=== PATIENT | male | born 1950 | race Two or more races ===

== ENCOUNTER 2017-12-12 09:09 | Day surgery (SDC) | payer MEDICARE, MEDICAID ==
[2017-12-12] MEDS ORDERED: CEFAZOLIN 1 G VIAL MC ONE (09:10)
[2017-12-12] MEDS ORDERED: LIDOCAINE-MPF 2% 5 ML VIAL MC ONE (09:10)
[2017-12-12] MEDS ORDERED: ONDANSETRON 4 MG/2 ML VIAL IV ONE (09:10)
[2017-12-12] MEDS ORDERED: PHENYLEPHRINE 10 MG/1 ML VIAL MC ONE (09:10)
[2017-12-12] MEDS ORDERED: DEXAMETHASONE SOD PHOSPHATE 4 MG INJ IV ONE (09:10)
[2017-12-12] MEDS ORDERED: PROPOFOL 200 MG/20 ML BOTTLE IV ONE (09:10)
[2017-12-12] MEDS ORDERED: SEVOFLURANE 250 ML BOTTLE IH ONE (09:10)
[2017-12-12] MEDS ORDERED: CEFAZOLIN 50 ML IV ONE (09:55)
[2017-12-12] MEDS ORDERED: FENTANYL CITRATE 100 MCG/2 ML AMPUL ONE ×2 (10:34→14:19)
[2017-12-12] MEDS ORDERED: MIDAZOLAM HCL 2 MG/2 ML VIAL ONE (10:35)
[2017-12-12] MEDS ORDERED: ROCURONIUM BROMIDE 50 MG/5 ML VIAL ONE (10:35)
[2017-12-12] MEDS ORDERED: LIDOCAINE 1%-EPI 1:100,000 20 ML VIAL ONE (11:07)
[2017-12-12] MEDS ORDERED: BUPIVACAINE PF 0.5% 30 ML VIAL ONE (11:07)
[2017-12-12] MEDS ORDERED: BACITRACIN ZINC OINT 15 GM TUBE ONE (13:37)
[2017-12-12] MEDS ORDERED: ACETAMINOPHEN 325 MG TABLET ONE (14:38)
[2017-12-12] MEDS ORDERED: GABAPENTIN 300 MG CAPSULE PO ONE (15:00)
[2017-12-12] MEDS ORDERED: IBUPROFEN 800 MG TABLET PO ONE (15:00)
== END 2017-12-12 15:47 | disposition home or self-care (01) ==
LOC: DS 09:09
PROVIDERS: ATTEND Surgery
DX: K60.1 Chronic anal fissure (principal); K64.8 Other hemorrhoids; I10 Essential (primary) hypertension; E78.5 Hyperlipidemia, unspecified; Z95.5 Presence of coronary angioplasty implant and graft; F15.90 Other stimulant use, unspecified, uncomplicated; Z87.891 Personal history of nicotine dependence; Z72.89 Other problems related to lifestyle
CPT/HCPCS: 45505; 71045; 88304; J0690 ×2; J1100; J2250; J2370; J2405; J3010 ×2; J3490 ×4; J7120; A4649; A4663